=== PATIENT | female | born 1950 ===

== ENCOUNTER 2017-02-18 21:42 | Emergency (ER) | payer MEDICARE, OTHER ==
[2017-02-18] MEDS ORDERED: traMADol TAB* 50 MG PO ONE (22:10)
--- NOTE | 2017-02-18 22:15 | UC ---
Lower Extremity/Ankle HPI - HPI Summary HPI Summary: Atraumatic left knee pain that started about 2 weeks ago. she has a walker that she uses on occassion. she has tried otc meds without much help. she has no twisting or locking. - History of Current Complaint Chief Complaint: UCLowerExtremity Stated Complaint: KNEE PAIN Time Seen by Provider: 02/18/17 22:01 Hx Obtained From: Patient, Family/Model Builder Display Hx Last Menstrual Period: n/a Onset/Duration: Gradual Onset, Lasting Weeks Severity Initially: Moderate Severity Currently: Moderate Aggravating Factor(s): Standing, Ambulation Alleviating Factor(s): Rest, Elevation Able to Bear Weight: Yes - Allergies/Home Medications Allergies/Adverse Reactions: Allergies Allergy/AdvReac Type Severity Reaction Status Date / Time No Known Allergies Allergy Verified 02/18/17 21:52 Home Medications: Home Medications Atorvastatin* [Lipitor*] 80 mg PO DAILY 02/18/17 [History Confirmed 02/18/17] Furosemide TAB* [Lasix TAB*] 40 mg PO DAILY 02/18/17 [History Confirmed 02/18/17 ] Megestrol TAB* [Megace TAB*] 80 mg PO BID 02/18/17 [History Confirmed 02/18/17] PMH/Surg Hx/FS Hx/Imm Hx Previously Healthy: No - no hx of rheumatoid arthritis. - Surgical History Surgical History: Yes Surgery Procedure, Year, and Place: tubal ligation 1990. choley 1990. cataracts 2015 - Family History Known Family History: Positive: Other - no related family history. - Social History Lives: With Family Alcohol Use: Weekly Alcohol Amount: 1 drink a week Substance Use Type: None Smoking Status (MU): Former Smoker Type: Cigarettes When Did the Patient Quit Smoking/Using Tobacco: 4.5 years ago - Immunization History Most Recent Influenza Vaccination: 12/2016 Review of Systems Musculoskeletal: Arthralgia All Other Systems Reviewed And Are Negative: Yes Physical Exam Triage Information Reviewed: Yes Appearance: Well-Appearing, Well-Nourished, Obese Vital Signs: Initial Vital Signs Temp 98.8 F 02/18/17 21:47 Pulse 93 02/18/17 21:47 Resp 20 02/18/17 21:47 BP 130/78 02/18/17 21:47 Pulse Ox 97 02/18/17 21:47 Vital Signs Reviewed: Yes Eyes: Positive: Conjunctiva Clear ENT: Positive: Normal ENT inspection Neck: Positive: Supple, Nontender, No Lymphadenopathy Respiratory: Positive: No respiratory distress Cardiovascular: Positive: Brisk Capillary Refill Abdomen Description: Negative: Distended Musculoskeletal Exam: Other - left knee small effusion compared to right. There is pain with apley grind and with compression of medial compartment. Neurological: Positive: Alert, Muscle Tone Normal. Negative: Fatigued Skin: Positive: rashes - diffuse dryness of the skin of the jeremías feet and ankles. Lower Extremity Course/Dx - Course Course Of Treatment: atraumatic left knee pain with effusion. there is medial compartment pain with compression. likely this is arthritis and or meniscus tear . they agree to start PT and then see Dr. high if not improved. she will also start to use the walker more. - Differential Dx/Diagnosis Provider Diagnoses: meniscus tear. atraumatic knee pain. Discharge - Discharge Plan Condition: Good Disposition: HOME Prescriptions: Meloxicam [Mobic] 15 mg PO DAILY #30 tab Patient Education Materials: Meniscus Tear (ED) Referrals: Pili MALONEP,[place] [Primary Care Provider] - Noah High MD [Medical Doctor] - Additional Instructions: Use your walker more often. Start physical therapy. follow up with orthopedics if not improving.
== END 2017-02-18 22:16 | disposition home or self-care (01) ==
LOC: UCCORT 21:42
DX: S83.8X2A Sprain of other specified parts of left knee, initial encounter (principal); X58.XXXA Exposure to other specified factors, initial encounter; Z87.891 Personal history of nicotine dependence
CPT/HCPCS: 99212; A9270-GY; G0463